=== PATIENT | female | born 1990 | race Caucasian/White ===

== ENCOUNTER 2021-01-04 09:11 | Emergency (ER) | payer BC ==
[2021-01-04 09:32] VITALS: TEMP 99.9; BMI 21.2
[2021-01-04 09:53] LABS: EOS % 1.5 % (0-4.5); HEMATOCRIT 40.1 % (32.4-45.2); LYMPH % 14.3 % (8-40); MCH 30.4 pg (25.7-33.7); MCHC 32.5 g/dl (32.0-36.0); MEAN CELL VOLUME 93.4 fl (80-96); MEAN PLT VOLUME 9.3 fl (7.5-11.1); MONO % 9.1 % (3.8-10.2); NEUT % 73.1 % (42.8-82.8); PLATELET COUNT 176 K/MM3 (134-434); RBC 4.29 M/mm3 (3.60-5.2); RDW 13.2 % (11.6-15.6); WHITE BLOOD COUNT 5.3 K/mm3 (4.0-10.8)
[2021-01-04 09:57] LABS: HCG,QUALITATIVE URINE Negative
[2021-01-04] MEDS ORDERED: ACETAMINOPHEN 325 MG TABLET (FP) PO ONE (09:57)
[2021-01-04 10:01] LABS: ALBUMIN 4.2 g/dl (3.4-5.0); CALCIUM 8.7 mg/dl (8.5-10); CREATININE 0.4 mg/dl (0.55-1.3); POTASSIUM 3.7 mmol/L (3.5-5.1)
[2021-01-04] MEDS ORDERED: ACETAMINOPHEN 325 MG TABLET (FP) ONE (10:09)
[2021-01-04 14:14] VITALS: BP 114/77; PULSE 66
== END 2021-01-04 14:25 | disposition home or self-care (01) ==
LOC: FER 09:11
DX: N83.209 Unspecified ovarian cyst, unspecified side (principal)
CPT/HCPCS: 36415; 74177-TC; 76700-TC; 76775-TC; 76856-TC; 80053; 81003; 81015; 84703; 85025; 86850; 86900; 86901; 87086; 87491; 87591; 99285-25; Q9967